=== PATIENT | male | born 1970 | race Two or more races ===

== ENCOUNTER 2018-12-24 09:21 | Emergency (ER) | payer SELFPAY ==
[~2018-12-24] VITALS: Ht 167.6 cm; Wt 98.2 kg
[2018-12-24 09:54] LABS: GLUCOSE,POINT OF CARE 92 MG/DL (70-110)
[2018-12-24] MEDS ORDERED: PERTUSS(ACELL),DIPH,TET VAC/PF 0.5 ML VIAL IM ONE (10:00)
[2018-12-24] MEDS ORDERED: LIDOCAINE 1% 10 ML VIAL INJ ONE (10:15)
[2018-12-24 12:44] VITALS: BP 125/87
== END 2018-12-24 12:48 | disposition home or self-care (01) ==
LOC: EMS 09:21
DX: S61.213A Laceration without foreign body of left middle finger without damage to nail, initial encounter (principal); W31.2XXA Contact with powered woodworking and forming machines, initial encounter; Y93.89 Activity, other specified; Y92.098 Other place in other non-institutional residence as the place of occurrence of the external cause; Y99.8 Other external cause status
CPT/HCPCS: 12001; 73130; 82962; 90471; 90715; 99283; J3490

== ENCOUNTER 2018-12-26 08:45 | Emergency (ER) | payer SELFPAY ==
[~2018-12-26] VITALS: Ht 167.6 cm; Wt 98.2 kg
[2018-12-26] MEDS ORDERED: BACITRACIN 0.9 GM PACKET OINTMENT TP ONE (09:15)
[2018-12-26 09:53] VITALS: BP 128/79
== END 2018-12-26 09:50 | disposition home or self-care (01) ==
LOC: EMS 08:47
DX: S61.213D Laceration without foreign body of left middle finger without damage to nail, subsequent encounter (principal); M79.89 Other specified soft tissue disorders; X58.XXXD Exposure to other specified factors, subsequent encounter

== ENCOUNTER 2023-09-02 07:03 | Emergency (ER) | payer OTHER ==
[~2023-09-02] VITALS: Ht 180.3 cm; Wt 100.0 kg
[2023-09-02 07:11] VITALS: BP 131/75; PULSE 96; RESP 18; TEMP 98.7
[2023-09-02 08:06] LABS: HEMATOCRIT 33.4 % (41-53); HEMOGLOBIN 11.1 g/dL (13.5-17.5)
== END 2023-09-02 09:44 | disposition left against medical advice (07) ==
LOC: EMS 07:05
DX: K57.91 Diverticulosis of intestine, part unspecified, without perforation or abscess with bleeding (principal)
CPT/HCPCS: 85014; 85018; 99283